=== PATIENT | female | born 1995 | race Caucasian/White ===

== ENCOUNTER 2018-11-25 15:56 | Emergency (ER) | payer SELFPAY ==
--- NOTE | 2018-11-25 16:05 | EDM.PDOCBH ---
ED HPI GENERAL MEDICAL PROBLEM - General Chief Complaint: Behavioral/Psych Stated Complaint: EVAL Time Seen by Provider: 11/25/18 16:15 Source of Information: Reports: Patient, EMS, Police History Limitations: Reports: No Limitations - History of Present Illness INITIAL COMMENTS - FREE TEXT/NARRATIVE: 33-year-old female brought in by ambulance after allegedly threatening self- harm and possibly overdosing on pills. She was on her way to [place] with a male who she has known in the past. Apparently he has been a problem but she had no other way to get to [place] so she agreed to let him take her. In route they stop for a drink and got in an argument, he claims that she took some pills in the car and was threatening to cut herself. He grabbed a knife and threw it out the window, they never did find any knife in her pill count does not indicate any large pill ingestion. She is completely stable. She is not suicidal, is anxious to get to [place] to be with her child was being cared for in the pediatric ICU. She has a room at the [facility] that she may lose if she doesn't get there by tomorrow. Onset: Unknown/Unsure Associated Symptoms: Reports: No Other Symptoms ED ROS GENERAL - Review of Systems Review Of Systems: See Below Constitutional: Denies: Fever HEENT: Reports: No Symptoms Respiratory: Denies: Shortness of Breath GI/Abdominal: Denies: Nausea, Vomiting Skin: Reports: No Symptoms Neurological: Denies: Headache ED EXAM, BEHAVIORAL HEALTH - Physical Exam Exam: See Below Exam Limited By: No Limitations General Appearance: Alert, No Apparent Distress, Other (Patient is very cooperative and straightforward) Eye Exam: Bilateral Eye: EOMI Respiratory/Chest: No Respiratory Distress Cardiovascular: Regular Rate, Rhythm Neurological: Alert, Oriented x 3 Psychiatric: Normal Affect. No: Depressed Mood, Flat Affect, Agitated Skin Exam: Warm, Dry COURSE, BEHAVIORAL HEALTH COMP - Course Vital Signs: Last Vital Signs Temp 96.4 F 11/25/18 16:00 Pulse 101 H 11/25/18 16:00 Resp 20 11/25/18 16:00 BP 131/98 H 11/25/18 16:00 Pulse Ox 99 11/25/18 15:57 Re-Assessment/Re-Exam: Because of the inconsistencies of the story we will watch her for an hour and if she is still medically stable and her other ride shows up and we'll claim responsibility for her and get her to [place] she may be dismissed at that time. Patient was observed for 2 hours and remained completely stable. She was trying to find a ride to [place], was tearful but not suicidal and showed no effects of any type of drug overdose. She'll be allowed to be discharged and hopefully can be transported to [place] by family. Departure - Departure Time of Disposition: 21:31 Disposition: Home, Self-Care 01 Condition: Good Clinical Impression: Depressive disorder - Discharge Information Instructions: Living With Depression Referrals: PCP,None [Primary Care Provider] - Forms: ED Department Discharge Care Plan Goals: Continue your current medications as prescribed. Recheck as needed.
== END 2018-11-25 21:32 | disposition home or self-care (01) ==
LOC: JP.ED 15:56 → EDBD 15:56 → JP.ED 21:32
DX: F32.9 Major depressive disorder, single episode, unspecified (principal)
CPT/HCPCS: 99284